=== PATIENT | male | born 2005 | race Caucasian/White ===

== ENCOUNTER 2025-01-21 08:21 | Emergency (ER) | payer OTHER, SELFPAY ==
[2025-01-21 08:31] VITALS: BP 145/57; PULSE 56; RESP 16; TEMP 36.1; O2SAT 99
--- NOTE | 2025-01-21 08:34 | ED_ITS ---
HPI - Eye Problem General Chief complaint: Eye Problems Stated complaint: Right Eye Irritation Time Seen by Provider: 01/21/25 08:35 Source: patient Mode of arrival: ambulatory Limitations: no limitations History of Present Illness HPI Narrative: Chase is a 19-year-old male patient presenting to the clinic today with complaints right eye discomfort x1 day. He reports he felt as though he got something in his eye last night. Woke up this morning and his eye was red, watering, and painful. 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 Visual acuity was performed and he was 20/30 and the left eye and 20/50 in the right eye. Patient reports his pain is more in the the upper eyelid Related Data Allergies Allergy/AdvReac Type Severity Reaction Status Date / Time No Known Allergies Allergy Verified 01/21/25 08:38 Review of Systems Review of Systems: Pertinent positives per HPI. Patient denies any fever, chills, rash, headache, visual changes, dizziness, cough, shortness of breath, chest pain, palpitations, nausea, vomiting, diarrhea, constipation, abdominal pain, or any urinary issues. PMFSH Comments At the time of my signature, I reviewed and agree with the nursing past medical, surgical, social, and family history. There is no relevant family history pertinent to the patient complaint. Exam Narrative: General: Well-developed, well nourished, in no apparent distress Head: Normocephalic, atraumatic Eyes: Pupils equally round and reactive to light bilaterally, EOM intact, left sclera and conjunctive clear, no discharge, lids normal, right sclera and conjunctiva injected, watery discharge, no lid swelling, no mass or lesion Ears: TMs intact and clear, ear canals clear, no drainage, grossly hearing normal. Nose: Nares patent, no discharge, no inflammation, no sinus tenderness. Mouth: Oral pharynx without lesions or masses, good dentition, MMM. Neck: Supple, trachea midline, no enlargement of anterior or posterior cervical nodes, no thyroid masses or goiter palpable. Cardio: Regular rate and rhythm, s1 and s2 normal, no murmur appreciated. Resp: Clear to auscultation bilaterally, no rhonchi, rales, wheezing or rubs Course Course Emergency Course: Portions of this record may have been created with voice recognition software. Level of Care: Express Care Visit Vital Signs Vital signs: Vital Signs Temperature 36.1 C L 03/13/25 08:31 Pulse Rate 56 L 01/21/25 08:31 Respiratory Rate 16 01/21/25 08:31 Blood Pressure 145/57 H 01/21/25 08:31 Pulse Oximetry 99 01/21/25 08:31 Oxygen Delivery Room Air 01/21/25 08:31 Temperature 36.1 C L 01/21/25 08:31 Pulse Rate 56 L 01/21/25 08:31 Respiratory Rate 16 01/21/25 08:31 Blood Pressure 145/57 H 01/21/25 08:31 Pulse Oximetry 99 01/21/25 08:31 Oxygen Delivery Room Air 01/21/25 08:31 Vital signs reviewed Procedures Other Procedure Procedure 1: Other Procedure: Two drops tetracaine topical anesthetic was instilled into the right eye good anesthesia. Fluorescein stain of the right eye was performed without uptake of dye. No epithelial defect was noted. NO FB, ulcer or dendritic lesions. Upper lid was everted and no FB or lesions were noted. NO Leslie sign. Normal saline irrigation eye solution was performed and the patient tolerated the procedure well, no adverse reaction or complications. MDM - Eye Problem MDM Narrative Medical decision making narrative: At the time of visit patient is resting comfortably on the exam table. Patient appears to be nontoxic. Procedures: Wood's lamp exam was performed and there was no sign of corneal abrasion or foreign body in the right eye Plan: I suspect patient has right eye irritation/discomfort. Patient reports pain is improved with the tetracaine drops. Eye was extensively irrigated in the clinic today and Q-tips were wet and with sterile normal saline and used to brush across the upper and lower eyelids. No sign of foreign body. Will send in tobramycin eyedrops to treat a secondary infection. Supportive measures were discussed with the patient and they voiced understanding discharge instructions and agrees to treatment plan. Return precautions reviewed Differential Diagnosis Differential diagnosis: Likely corneal abrasion, conjunctivitis, acute iritis, hyphema, periorbital cellulitis, subconjunctival hemorrhage, glaucoma, corneal ulcer, ruptured globe and other (Foreign body, stye, lesion) Discharge Plan Discharge Clinical Impression: Irritation of right eye Patient Disposition: Home, Self-Care Condition: Stable Instructions: Antibiotic Form, Eye Pain (ED) Additional Instructions: Eye exam was performed in the clinic today and shows no sign of foreign body or corneal abrasion. Practice good hand washing techniques Avoid touching eyes Instill eyedrops as prescribed May use cool or warm moist washcloth to help alleviate discomfort If eyes are matted shut-do not pry eyes open-use a warm moist cloth to loosen matting and wipe matter away from eye May take Tylenol/Motrin as needed for pain or fever May take Benadryl as needed for itching Follow-up with your PCP or eye doctor in 2-3 days if symptoms persist or sooner if they worsen Go to the emergency room if you develop any fever that is not controlled by Tylenol or Motrin, loss of vision, eye pain, increase eye swelling,visual changes, headache, confusion, lethargy, weakness, chest pain, or shortness of breath. Patient Language: Ma[place] Prescriptions: New tobramycin 0.3 % drops 1 drp RIGHT EYE Q4H 7 Days Qty: 5 0RF Follow-up/Referrals: PHYSICIAN,FASHION JOURNALIST [Primary Care Provider] - Time of Disposition: 08:55 Quality NIHSS Nursing Documentation ED NIHSS nursing documentation: reviewed/agree
[2025-01-21] MEDS: TETRACAINE HCL 0.5% OPHTH SOLN 4 ML BTL RIGHT EYE (08:44)
[2025-01-21] MEDS: FLUORESCEIN SOD 1 MG/STRIP RIGHT EYE (08:45)
[2025-01-21] MEDS: DACRIOSE EYE IRRIGATION 118 ML BOTTLE RIGHT EYE (08:45)
== END 2025-01-21 09:05 | disposition home or self-care (01) ==
PROVIDERS: Emergency Provider Nurse Practitioner Family
DX: H57.11 Ocular pain, right eye (principal)
CPT/HCPCS: 99203; A9270; G0463